=== PATIENT | male | born 1950 | race Caucasian/White ===

== ENCOUNTER 2020-03-27 12:05 | Day surgery (SDC) | payer MEDICARE, BC ==
[~2020-03-27] VITALS: Ht 175.3 cm; Wt 95.4 kg
[~2020-03-27 12:05] MED LIST: AMBIEN10 MG PO; COENZYME Q10100 MG PO; ELOCON15 G1 TP; FLEXERIL10 MG PO; LISINOPRIL10 MG; ZIAC 5-6.25 MG1 TAB PO
[2020-03-27] MEDS ORDERED: LIPITOR20 MG PO (12:38)
[2020-03-27] MEDS ORDERED: LOW DOSE ASPIRI81 MG PO (12:38)
--- NOTE | 2020-03-27 13:37 | NUR ---
03/27/20 1337 Betzy Aguayo 1333 PATIENT ARRIVES TO PACU SLEEPING, OPENS EYES WITH VERBAL STIMULI, BACK TO SLEEP WHEN NOT STIMUALATED. RESP EVEN AND UNLABORED. OXYGEN OFF. ROOM AIR SATS >92%. PATIENT PASSING GAS.
--- NOTE | 2020-03-29 11:56 | PATH ---
[facility] [address] [place], [place] [address] Signed SPECIMEN(S): A CECUM SPECIMEN(S): B TERMINAL ILEUM SPECIMEN(S): C RECTUM SPECIMEN(S): D DISTAL RECTAL POLYP SPECIMEN SOURCE: A. CECUM B. TERMINAL ILEUM C. RECTUM D. DISTAL RECTAL POLYP CLINICAL HISTORY: History of colon polyps, diarrhea. Postop: Mild proctitis, rectal polyp. MICROSCOPIC DESCRIPTION: Histologic sections of all submitted blocks are examined by light microscopy. These findings, together with the gross examination, support the pathologic diagnosis. FINAL PATHOLOGIC DIAGNOSIS: A. Colon, cecum, biopsy: - Colonic mucosa with mild lamina propria hemorrhage and vascular congestion. - Negative active, chronic, or microscopic colitis. - Negative for dysplasia or malignancy. - See comment. B. Terminal ileum, biopsy: - Ileal mucosa with no histopathologic abnormality. - Negative for active inflammation or granulomata. - Negative for dysplasia or malignancy. C. Rectum, biopsy: - Rectal mucosa with mild lamina propria hemorrhage. - Negative for active or chronic proctitis. - Negative for dysplasia or malignancy. - See comment. D. Rectum, distal, polyp, polypectomy: - Hyperplastic polyp. - Negative for dysplasia or malignancy. COMMEN: Regarding specimens A and C: Mild lamina propria hemorrhage is present, but there is no crypt injury, crypt dropout, or lamina propria hyalinization. The hemorrhage could be secondary to the biopsy procedure. NAL:cml:[id number] PATIENT NAME: WEISSMATEUS PRAMOD PATHOLOGY DATE OF : 54 REPORT #: [id number] PHYSICIAN: MAL HAINES PCP: DARRION BLOOM PA-C REPORT IS CONFIDENTIAL AND NOT TO BE RELEASED WITHOUT AUTHORIZATION [facility] [address] [place], [place] [address] Signed GROSS DESCRIPTION: Four specimens are received in four containers, labeled "Mateus Barlow." A. The specimen, labeled " Mateus Barlow, #1," and designated on the requisition "cecum," is received in formalin and consists of two dockery soft tissue fragments that measure 0.3 and 0.3 cm in greatest dimension. The specimen is entirely submitted in cassette (A1). B. The specimen, labeled " Mateus Barlow, #2," and designated on the requisition "terminal ileum," is received in formalin and consists of three dockery soft tissue fragment that measure 0.2-0.6 cm in greatest dimension. The specimen is entirely submitted in cassette (B1). C. The specimen, labeled " Mateus Barlow, #3," and designated on the requisition "rectum," is received in formalin and consists of two dockery soft tissue fragments that measure 0.2 and 0.3 cm in greatest dimension. The specimen is entirely submitted in cassette (C1). D. The specimen, labeled " Mateus Barlow, #4," and designated on the requisition "distal rectal polyp," is received in formalin and consists of two dockery soft tissue fragments that measure 0.2 and 0.3 cm in greatest dimension. The specimen is entirely submitted in cassette (D1). FB (under the direct supervision of a pathologist) The Gross Description was prepared using a voice recognition system. The report was reviewed for accuracy; however, sound-alike word errors, addition and/or deletions may occur. If there is any question about this report, please contact Client Services. PERFORMING LABORATORY: The technical component was performed by [facility], [address] [place] [id number] (Speedboat Driver: Bailey Rudolph MD; CLIA# [id number]). Professional interpretation was performed by [facility], [address] [address] (CLIA# [id number]). Diagnostician: Sara Mullen MD Pathologist Electronically Signed 03/29/2020 Copies: PATIENT NAME: ISELAMATEUSNEREYDA BENAVIDEZ PATHOLOGY DATE OF : 54 REPORT #: [id number] PHYSICIAN: MAL HAINES PCP: DARRION BLOOM PA-C REPORT IS CONFIDENTIAL AND NOT TO BE RELEASED WITHOUT AUTHORIZATION [facility] [address] [place], [place] [address] Signed ~ PATIENT NAME: MATEUS WEISS PATHOLOGY DATE OF : 54 REPORT #: [id number] PHYSICIAN: MAL HAINES PCP: DARRION BLOOM PA-C REPORT IS CONFIDENTIAL AND NOT TO BE RELEASED WITHOUT AUTHORIZATION
--- NOTE | 2020-04-01 15:46 | OR ---
[facility] [address] [place], [place] [address] Signed DATE OF OPERATION: 03/27/2020 SURGEON: Martir Naik MD PREOPERATIVE DIAGNOSIS: History of polyp and persistent diarrhea. POSTOPERATIVE DIAGNOSIS: Normal-appearing colon and ileum except for small hyperplastic polyp of the low rectum. PROCEDURE: Total colonoscopy to cecum with intubation of ileum and biopsy of ileum and colon and excision of low rectal polyp. ANESTHESIA: Intravenous sedation, fentanyl 100 mcg and Versed 6 mg. INDICATIONS: This 69-year-old white man is a patient of ZECHARIAH Borja. He is known to me from the past having had colonoscopy before and having had polyps. His last colonoscopy was in 2012, at which point he was noted to have a hyperplastic polyp. A diminutive polyp was noted in 2005 as well. The patient does have diarrhea from [id number], but no associated rectal bleeding. He also has a fair amount of perianal itching. He has a family history of colon cancer in a maternal uncle and maternal aunt. He is admitted at this time to undergo surveillance colonoscopy with biopsy for diarrhea issues. He understands the risks of bleeding, infection, and perforation. FINDINGS: The prep was excellent. Complete colonoscopy was undertaken of the cecum without question. The cecum was fully intubated and the ileum was intubated as well. The ileum appeared normal. The remaining colon showed no evidence of colitis. There was a small hyperplastic polyp of the low rectum, which was excised. There were no other findings of concern. DESCRIPTION OF PROCEDURE: The patient was brought to the endoscopy suite and placed in lateral decubitus position given intravenous sedation to the point of slurred speech and nystagmus. Digital rectal examination was normal. An Olympus video colonoscope was passed in the rectum and manipulated throughout the Electronically Signed By: MARTIR NAIK MD 04/01/20 1546 PATIENT NAME: MATEUS WEISS OPERATIVE REPORT DATE OF : 54 REPORT #: [id number] PHYSICIAN: MARTIR NAIK MD PCP: DARRION GILBERT PA-C REPORT IS CONFIDENTIAL AND NOT TO BE RELEASED WITHOUT AUTHORIZATION [facility] [address] [place], [place] [address] Signed colon, ultimately intubating the cecum itself. The ileocecal valve and appendiceal orifice were normal. Biopsies were taken of the cecum. With a few manipulations, the scope was passed into the ileum, which appeared normal. Biopsies were obtained there as well. The scope was withdrawn and examination throughout showed no sign of abnormality into the low rectum on retroflexed view, where small hyperplastic polyp was noted, this was excised with cold morcellation technique. Rectum was biopsied as well to assess for colitis accounting for diarrhea. The scope was removed, and the patient was taken to the recovery room in good condition. CONCLUDING DIAGNOSIS: Hyperplastic polyp of the rectum. No evidence of colitis or other abnormality. PLAN: If diarrhea persists, we will see him back in followup for management of his diarrhea issue. I would recommend repeat colonoscopy in 5 years no matter what was found due to family history. He will otherwise return to the ongoing care of Darrion Gilbert. MD CHRIS Pereyra/ZAIN /[id number] Copies: ~ Electronically Signed By: MARTIR NAIK MD 04/01/20 1546 PATIENT NAME: ISELAMATEUSNEREYDA BENAVIDEZ OPERATIVE REPORT DATE OF : 54 REPORT #: [id number] PHYSICIAN: MARTIR NAIK MD PCP: DARRION GILBERT PA-C REPORT IS CONFIDENTIAL AND NOT TO BE RELEASED WITHOUT AUTHORIZATION
== END 2020-03-27 14:10 | disposition home or self-care (01) ==
LOC: OPS 12:05 → DS 12:05 → OPS 13:00
PROVIDERS: ATTEND Surgery
PROC: 0DBP8ZX Excision of Rectum, Via Natural or Artificial Opening Endoscopic, Diagnostic (ICD-10-PCS; 2020-03-27)
PROC: 0DBH8ZX Excision of Cecum, Via Natural or Artificial Opening Endoscopic, Diagnostic (ICD-10-PCS; principal; 2020-03-27 13:00)
DX: K62.1 Rectal polyp (principal); K92.2 Gastrointestinal hemorrhage, unspecified; I10 Essential (primary) hypertension; R19.7 Diarrhea, unspecified; E78.5 Hyperlipidemia, unspecified; G47.00 Insomnia, unspecified; Z86.010 Personal history of colon polyps; Z79.899 Other long term (current) drug therapy; Z87.891 Personal history of nicotine dependence
CPT/HCPCS: 99153; G0500; J2250; J3010; J7121

== ENCOUNTER 2022-01-24 09:51 | Emergency (ER) | payer OTHER ==
[~2022-01-24] VITALS: Ht 175.3 cm; Wt 90.7 kg
[~2022-01-24 09:51] MED LIST changes: +LIPITOR20 MG PO; +LOW DOSE ASPIRI81 MG PO
[2022-01-24] MEDS ORDERED: PERCOCET 5-3251 EACH PO (14:30)
[2022-01-24] MEDS ORDERED: ONDANSETRON ODT4 MG PO (14:30)
== END 2022-01-24 14:48 | disposition home or self-care (01) ==
LOC: ED 09:51
DX: S30.0XXA Contusion of lower back and pelvis, initial encounter (principal); I10 Essential (primary) hypertension; Z87.891 Personal history of nicotine dependence; Z79.899 Other long term (current) drug therapy; W00.1XXA Fall from stairs and steps due to ice and snow, initial encounter
CPT/HCPCS: 72131; 96374; 96375; 96376; 99283-25; J1170; J1885; J2405